=== PATIENT | female | born 1980 | race Caucasian/White ===

== ENCOUNTER 2016-11-22 14:27 | Emergency (ER) | payer SELFPAY ==
[~2016-11-22] VITALS: Ht 172.7 cm; Wt 63.5 kg
[2016-11-22] MEDS ORDERED: NEOMY/BACITRA/POLYMYXIN B OINT UD PACKET TP ONE ×2 (14:45→14:58)
[2016-11-22] MEDS ORDERED: AMOXICILLIN-CLAVUL 875-125MG TABLET PO ONE (14:45)
[2016-11-22] MEDS ORDERED: LIDOCAINE HCL 1% 20 ML VIAL TP ONE (14:45)
[2016-11-22] MEDS ORDERED: HYDROCODONE/APAP 5-325MG TABLET PO ONE (14:45)
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
[2016-11-22] MEDS ORDERED: HYDROCODONE/APAP 5-325MG TABLET ONE (14:58)
[2016-11-22] MEDS ORDERED: AMOXICILLIN-CLAVUL 875-125MG TABLET ONE (15:23)
[2016-11-22 16:02] LABS: HIV-1 p24 ANTIGEN NON REACTIVE (NONREACTIVE); HIV-1/2 ANTIBODY NON REACTIVE (NONREACTIVE)
--- NOTE | 2016-11-22 17:44 | NUR ---
Patient discharged home in stable conditon. Written and verbal after care instructions given. Patient verbalizes understanding of instructions. Prescription provided. Ambulates with a steadt gait.
[2016-11-22 17:45] VITALS: BP 132/62
[2016-11-23 08:06] LABS: HCV AB <0.1 s/co ratio (0.0-0.9); HEPATITIS B SURFACE AB Non Reactive (.); HEPATITIS B SURFACE AG Negative (Negative)
== END 2016-11-22 17:46 | disposition home or self-care (01) ==
LOC: ER 14:27
DX: S81.021A Laceration with foreign body, right knee, initial encounter (principal); S91.322A Laceration with foreign body, left foot, initial encounter; Y04.1XXA Assault by human bite, initial encounter; Y93.89 Activity, other specified; Y99.8 Other external cause status; Y92.89 Other specified places as the place of occurrence of the external cause
CPT/HCPCS: 36415; 73060; 73560; 73562; 73590; 73610; 73630; 84703; 86706; 86803; 87340; 87806; A4217; A4663